=== PATIENT | female | born 1960 | race African-American/Black ===

== ENCOUNTER 2017-08-20 20:36 | Inpatient (IN) | payer BC ==
[~2017-08-20] VITALS: Ht 162.6 cm; Wt 118.5 kg
[2017-08-20 21:32] LABS: BASOPHIL % 0.4 % (0-2); PLATELET COUNT 279 x10^3mcL (130-400); RED CELL DISTRIBUTION WIDTH 14.3 % (11.5-14.5)
[2017-08-20 21:45] LABS: CALCIUM 9.4 mg/dL (8.5-10.1); CARBON DIOXIDE 28.2 mmol/L (21-32); CHLORIDE SERUM 104 mmol/L (98-107); CREATININE SERUM 0.7 mg/dL (0.6-1.0); GFR1 > 60 mL/min; GLUCOSE SERUM 91 mg/dL (74-106); POTASSIUM SERUM 3.8 mmol/L (3.5-5.1); SODIUM SERUM 140 mmol/L (136-145)
[2017-08-20 21:49] LABS: ALBUMIN 4.2 g/dL (3.4-5.0); ALKALINE PHOSPHATASE 105 U/L (46-116); ALT/SGPT 24 U/L (14-59); AST/SGOT 19 U/L (15-37); BILIRUBIN TOTAL 0.61 mg/dL (0.20-1.00); TOTAL PROTEIN, SERUM 7.9 g/dL (6.4-8.2)
[2017-08-21] VITALS (7 sets, daily range): BP systolic 97–176; BP diastolic 57–91; Ht 162.6 cm; Wt 118.5 kg
[2017-08-21] MEDS ORDERED: HYD25 PO (00:37)
[2017-08-21] MEDS ORDERED: AMBIEN5 MG PO (00:41)
[2017-08-21] MEDS ORDERED: LEVOTHYROXIN0.075 M2 PO (00:41)
[2017-08-21] MEDS ORDERED: CALCIUM 1,0001 EACH PO (00:43)
[2017-08-21] MEDS ORDERED: OMEPRAZOLE40 M1 PO (00:44)
[2017-08-21] MEDS ORDERED: ZANAFLEX CAPSULE4 MG PO (00:44)
[2017-08-21 01:58] LABS: MAGNESIUM 2.4 mg/dL (1.8-2.4); PHOSPHOROUS 3.9 mg/dL (2.5-4.9)
[2017-08-21 01:59] LABS: CHOLESTEROL/HDL RATIO 5.3
[2017-08-21 02:06] LABS: FREE T4 0.95 ng/dL (0.76-1.46); T4(THYROXINE) 8.6 ug/dL (4.7-13.3)
[2017-08-21 02:13] LABS: T3 TOTAL 0.81 ng/mL
[2017-08-21 03:13] LABS: microscopic required? YES; urine erythrocyte NEGATIVE (NEGATIVE)
[2017-08-21 03:24] LABS: AMPHETAMINE QUAL UR NONE DETECTED (NEG <=1000)
[2017-08-21 06:26] LABS: BASOPHIL % 0.4 % (0-2); PLATELET COUNT 231 x10^3mcL (130-400); RED CELL DISTRIBUTION WIDTH 13.9 % (11.5-14.5)
[2017-08-21 06:28] LABS: CHLORIDE SERUM 105 mmol/L (98-107); CREATININE SERUM 0.7 mg/dL (0.6-1.0); GFR1 > 60 mL/min; GLUCOSE SERUM 101 mg/dL (74-106); POTASSIUM SERUM 3.4 mmol/L (3.5-5.1); SODIUM SERUM 142 mmol/L (136-145)
[2017-08-22 05:46] VITALS: BP 139/73
[2017-08-22 06:15] LABS: BASOPHIL % 0.4 % (0-2); PLATELET COUNT 245 x10^3mcL (130-400)
[2017-08-22 06:21] LABS: CALCIUM 9.1 mg/dL (8.5-10.1); CARBON DIOXIDE 27.5 mmol/L (21-32); CHLORIDE SERUM 103 mmol/L (98-107); CREATININE SERUM 0.6 mg/dL (0.6-1.0); GFR1 > 60 mL/min; GLUCOSE SERUM 97 mg/dL (74-106); PHOSPHOROUS 5.3 mg/dL (2.5-4.9); POTASSIUM SERUM 3.5 mmol/L (3.5-5.1); SODIUM SERUM 140 mmol/L (136-145)
[2017-08-22 09:48] VITALS: BP 145/75
[2017-08-22] MEDS ORDERED: MAC100 PO (12:03)
[2017-08-22] MEDS ORDERED: PROTONIX TR40 M1 PO (12:04)
[2017-08-22] MEDS ORDERED: NOR10T PO (12:04)
[2017-08-22] MEDS ORDERED: ELA25 PO (12:04)
[2017-08-22] MEDS ORDERED: SIMETHICONE80 MG CH (12:05)
[2017-08-22] MEDS ORDERED: LAC PO (12:07)
[2017-08-22] MEDS ORDERED: SEN PO (12:07)
[2017-08-22 13:03] VITALS: BP 148/85
[2017-08-22 13:41] VITALS: BP 148/85
== END 2017-08-22 15:08 | disposition home or self-care (01) | DRG 391 ==
LOC: ED 20:36 → DU 23:41
PROVIDERS: Emergency Medicine; Family Medicine; Internal Medicine Gastroenterology
PROC: 0DB68ZX Excision of Stomach, Via Natural or Artificial Opening Endoscopic, Diagnostic (ICD-10-PCS; principal; 2017-08-21 10:00)
DX: K29.00 Acute gastritis without bleeding (principal); E43 Unspecified severe protein-calorie malnutrition; F31.0 Bipolar disorder, current episode hypomanic; Z68.41 Body mass index [BMI] 40.0-44.9, adult; N39.0 Urinary tract infection, site not specified; K22.2 Esophageal obstruction; K21.9 Gastro-esophageal reflux disease without esophagitis; I25.10 Atherosclerotic heart disease of native coronary artery without angina pectoris; F41.0 Panic disorder [episodic paroxysmal anxiety]; R20.8 Other disturbances of skin sensation; M41.9 Scoliosis, unspecified; E66.01 Morbid (severe) obesity due to excess calories; I16.0 Hypertensive urgency; E87.6 Hypokalemia; R73.03 Prediabetes; E83.39 Other disorders of phosphorus metabolism; G47.00 Insomnia, unspecified; I10 Essential (primary) hypertension; M79.7 Fibromyalgia; E03.9 Hypothyroidism, unspecified; Z88.1 Allergy status to other antibiotic agents; Z90.89 Acquired absence of other organs; Z90.710 Acquired absence of both cervix and uterus
CPT/HCPCS: 43235; 83880; 84439; C9113; J0696; J1200; J1610; J2250; J2270; J2310; J2405; J3010; J3490; J7030; J8597; Q0092; Q9967